=== PATIENT | female | born 1960 ===

== ENCOUNTER 2018-02-10 11:29 | Emergency (ER) | payer OTHER ==
[~2018-02-10] VITALS: Ht 149.9 cm; Wt 51.7 kg
== END 2018-02-10 14:42 | disposition home or self-care (01) ==
LOC: ER 11:29
DX: S00.03XA Contusion of scalp, initial encounter (principal); W22.8XXA Striking against or struck by other objects, initial encounter; Y93.84 Activity, sleeping; Y92.813 Airplane as the place of occurrence of the external cause; Y99.8 Other external cause status